=== PATIENT | female | born 1950 | race African-American/Black ===

== ENCOUNTER 2017-10-03 10:59 | Emergency (ER) | payer OTHER ==
[~2017-10-03] VITALS: Ht 167.6 cm; Wt 160.0 kg
[~2017-10-03 10:59] MED LIST: ACET1TAB12 PO; AMIT100T2 PO; AMLO10TA80 PO; ATEN100T PO; BENZ2TAB7 PO; CYCL10TA7 PO; FLUP10TA2 PO; LOSA100T14 PO; LOVA40TA73 PO; MULT-1116 PO; [UNRECOGNIZED DRUG - CODE] PO
[2017-10-03] MEDS ORDERED: IBUPROFEN 600MG TABLET PO ONE (13:15)
[2017-10-03 19:47] VITALS: BP 140/67
== END 2017-10-03 20:11 | disposition home or self-care (01) ==
LOC: ER 11:15
DX: M25.562 Pain in left knee (principal); M25.561 Pain in right knee; M17.0 Bilateral primary osteoarthritis of knee; G89.29 Other chronic pain; F41.9 Anxiety disorder, unspecified; E86.0 Dehydration; M19.90 Unspecified osteoarthritis, unspecified site; E78.00 Pure hypercholesterolemia, unspecified; I10 Essential (primary) hypertension; E66.01 Morbid (severe) obesity due to excess calories; M51.36 Other intervertebral disc degeneration, lumbar region; Z68.43 Body mass index [BMI] 50.0-59.9, adult; Z99.3 Dependence on wheelchair; Z88.0 Allergy status to penicillin; Z88.6 Allergy status to analgesic agent; W01.0XXA Fall on same level from slipping, tripping and stumbling without subsequent striking against object, initial encounter; Y93.89 Activity, other specified; Y92.013 Bedroom of single-family (private) house as the place of occurrence of the external cause; M85.80 Other specified disorders of bone density and structure, unspecified site
CPT/HCPCS: 71045; 72100; 73560; 73590; 99284; Z7610

== ENCOUNTER 2018-01-04 09:39 | Emergency (ER) | payer OTHER ==
[~2018-01-04] VITALS: Ht 162.6 cm; Wt 158.0 kg
[2018-01-04] MEDS ORDERED: CYCLOBENZAPRINE 10MG TABLET PO ONE (11:30)
[2018-01-04] MEDS ORDERED: IBUPROFEN 600MG TABLET PO ONE (11:30)
[2018-01-04 16:00] VITALS: BP 147/67
== END 2018-01-04 16:05 | disposition home or self-care (01) ==
LOC: ER 09:55
DX: S82.832A Other fracture of upper and lower end of left fibula, initial encounter for closed fracture (principal); M19.90 Unspecified osteoarthritis, unspecified site; F41.9 Anxiety disorder, unspecified; K21.9 Gastro-esophageal reflux disease without esophagitis; I10 Essential (primary) hypertension; E78.00 Pure hypercholesterolemia, unspecified; Z88.0 Allergy status to penicillin; Z88.6 Allergy status to analgesic agent; Z79.899 Other long term (current) drug therapy; X58.XXXA Exposure to other specified factors, initial encounter; Y93.89 Activity, other specified; Y92.89 Other specified places as the place of occurrence of the external cause; Y99.8 Other external cause status
CPT/HCPCS: 29515; 73610; 99284; Z7610

== ENCOUNTER 2018-12-28 22:15 | Emergency (ER) | payer OTHER ==
[~2018-12-28] VITALS: Ht 162.6 cm; Wt 167.0 kg
[~2018-12-28 22:15] MED LIST changes: -LOSA100T14 PO; +LOSA100T32 PO
[2018-12-28] MEDS ORDERED: METHYLPREDNISOLONE SOD SUCC 125 MG/2 ML VIAL IV STA (22:48)
[2018-12-28] MEDS ORDERED: ALBUTEROL (0.083%) 2.5MG/3ML NEB HHN STA (22:48)
[2018-12-28] MEDS ORDERED: IPRATROPIUM BROMIDE (0.02%) 0.5MG/2.5ML NEB HHN STA (22:48)
[2018-12-28] MEDS ORDERED: ASPIRIN 81MG TABLET PO ONE (23:00)
[2018-12-28 23:22] LABS: BASOPHILS % 0.3 % (0.0-2.0); EOSINOPHILS % 2.6 % (0.0-5.0); HEMATOCRIT. 31.5 % (36.0-48.0); HEMOGLOBIN. 10.7 g/dL (12.0-16.0); LYMPHOCYTES % 12.3 % (20.0-50.0); MEAN CORPUSCULAR HEMOGLOBIN 28.2 pg (28.0-32.0); MEAN CORPUSCULAR VOLUME 82.9 fL (81.0-99.0); MONOCYTES % 6.3 % (2.0-8.0); NEUTROPHILS % 78.5 % (40.0-76.0); PLATELET 342 x1000/uL (130-400); RED BLOOD CELL COUNT 3.79 mill/uL (4.2-5.4); RED CELL DISTRIBUTION WIDTH 14.7 % (11.6-14.6)
[2018-12-28 23:28] LABS: CHLORIDE 93 mEq/L (98-107)
[2018-12-29 04:13] VITALS: BP 121/67
== END 2018-12-29 04:30 | disposition home or self-care (01) ==
LOC: ER 22:37
DX: R53.1 Weakness (principal); R06.2 Wheezing; R42 Dizziness and giddiness; I12.9 Hypertensive chronic kidney disease with stage 1 through stage 4 chronic kidney disease, or unspecified chronic kidney disease; N18.9 Chronic kidney disease, unspecified
CPT/HCPCS: 36415; 71045; 80053; 83690; 83880; 84484; 85025; 94640; 96374; 99284; J2930; J7611; Z7610

== ENCOUNTER 2019-05-20 22:02 | Emergency (ER) | payer OTHER ==
[~2019-05-20] VITALS: Ht 167.6 cm; Wt 138.0 kg
[2019-05-20] MEDS ORDERED: KETOROLAC 30MG/ML VIAL IV STA (22:51)
[2019-05-20 23:25] LABS: BASOPHILS % 1.3 % (0.0-2.0); EOSINOPHILS % 4.3 % (0.0-5.0); LYMPHOCYTES % 42.1 % (20.0-50.0); MEAN CORPUSCULAR HEMOGLOBIN 27.7 pg (28.0-32.0); MEAN CORPUSCULAR VOLUME 82.9 fL (81.0-99.0); MONOCYTES % 7.4 % (2.0-8.0); NEUTROPHILS % 44.9 % (40.0-76.0); PLATELET 390 x1000/uL (130-400); RED BLOOD CELL COUNT 3.98 mill/uL (4.2-5.4); RED CELL DISTRIBUTION WIDTH 16.3 % (11.6-14.6)
[2019-05-20 23:37] LABS: CHLORIDE 105 mEq/L (98-107)
[2019-05-21 04:12] VITALS: BP 124/63
== END 2019-05-21 04:49 | disposition home or self-care (01) ==
LOC: ER 22:02
DX: J06.9 Acute upper respiratory infection, unspecified (principal); I10 Essential (primary) hypertension; F20.9 Schizophrenia, unspecified; Z88.0 Allergy status to penicillin; Z88.6 Allergy status to analgesic agent; Z88.5 Allergy status to narcotic agent; Z79.899 Other long term (current) drug therapy
CPT/HCPCS: 36415; 71045; 80053; 83880; 84484; 85025; 87804; 93005; 96374; 99284; J1885; Z7610

== ENCOUNTER 2022-02-14 10:15 | Emergency (ER) | payer MEDICARE, OTHER ==
[~2022-02-14] VITALS: Ht 162.6 cm; Wt 204.0 kg
[~2022-02-14 10:15] MED LIST changes: +CYCL10TA21 PO; -CYCL10TA7 PO; +FLUP10TA13 PO; -FLUP10TA2 PO
[2022-02-14 10:17] VITALS: BP 120/58
[2022-02-14] MEDS ORDERED: IBUP-2029 MT (13:37)
== END 2022-02-14 16:05 | disposition home or self-care (01) ==
LOC: ER 10:15
DX: M19.09 Primary osteoarthritis, other specified site (principal); R60.0 Localized edema; E78.00 Pure hypercholesterolemia, unspecified; I10 Essential (primary) hypertension; F20.9 Schizophrenia, unspecified; Z79.899 Other long term (current) drug therapy
CPT/HCPCS: 73030; 93971; 99284

== ENCOUNTER 2022-12-09 16:53 | Emergency (ER) | payer MEDICARE, OTHER ==
[~2022-12-09] VITALS: Ht 167.6 cm; Wt 170.0 kg
[~2022-12-09 16:53] MED LIST changes: +BENZ2TAB65 PO; -BENZ2TAB7 PO; +IBUP-2029 MT; -LOSA100T32 PO; +LOSA100T33 PO
[2022-12-09 17:02] VITALS: O2SAT 97
[2022-12-09 19:06] LABS: BASOPHILS % 0.7 % (0.0-2.0); EOSINOPHILS % 2.4 % (0.0-5.0); HEMATOCRIT. 33.2 % (36.0-48.0); HEMOGLOBIN. 10.8 g/dL (12.0-16.0); LYMPHOCYTES % 30.3 % (20.0-50.0); MEAN CORPUSCULAR HEMOGLOBIN 28.2 pg (28.0-32.0); MEAN CORPUSCULAR VOLUME 86.4 fL (81.0-99.0); MEAN PLATELET VOLUME 6.5 fl (7.4-10.4); MONOCYTES % 6.7 % (2.0-8.0); NEUTROPHILS % 59.9 % (40.0-76.0); PLATELET 259 x1000/uL (130-400); RED BLOOD CELL COUNT 3.85 mill/uL (4.2-5.4); RED CELL DISTRIBUTION WIDTH 14.5 % (11.6-14.6)
[2022-12-09 19:13] LABS: CHLORIDE 101 mEq/L (98-107); INR 1.1; PROTHROMBIN TIME 11.4 sec (9.6-11.0)
[2022-12-09 19:23] LABS: ETHANOL BLOOD < 10 mg/dL (-10)
[2022-12-09 20:03] LABS: CLARITY URINE CLEAR (CLEAR); COLOR URINE YELLOW (YELLOW); KETONES URINE NEGATIVE (NEGATIVE); LEUKOCYTE ESTERASE URINE NEGATIVE (NEGATIVE); NITRITE URINE NEGATIVE (NEGATIVE); OCCULT BLOOD URINE TRACE (NEGATIVE); PH URINE 6.5 (4.5-8.0); PROTEIN URINE NEGATIVE (NEGATIVE); SPECIFIC GRAVITY URINE 1.009 (1.005-1.030); UROBILINOGEN URINE 0.2 E.U./dL (0.2-1.0)
[2022-12-09 20:18] LABS: *AMPHETAMINES SCREEN URINE NEGATIVE (NEGATIVE); *BARBITURATES SCREEN URINE NEGATIVE (NEGATIVE); *BENZODIAZEPINES SCREEN URINE NEGATIVE (NEGATIVE); *COCAINE SCREEN URINE NEGATIVE (NEGATIVE); CANNABINOID URINE SCREEN NEGATIVE (NEGATIVE); METHADONE URINE SCREEN NEGATIVE (NEGATIVE); OPIATES URINE SCREEN NEGATIVE (NEGATIVE); PHENCYCLIDINE URINE SCREEN NEGATIVE (NEGATIVE)
[2022-12-09] MEDS ORDERED: NAPROXEN 250MG TABLET PO ONE (21:00)
[2022-12-09] MEDS ORDERED: GABAPENTIN 100MG CAPSULE PO ONE (21:00)
[2022-12-09] MEDS ORDERED: GABA-529 MT (21:10)
[2022-12-10 13:00] VITALS: BP 135/66; PULSE 103; RESP 20; TEMP 98.1
== END 2022-12-10 13:42 | disposition home or self-care (01) ==
LOC: ER 16:53
DX: M25.551 Pain in right hip (principal); E66.01 Morbid (severe) obesity due to excess calories; I11.0 Hypertensive heart disease with heart failure; I50.9 Heart failure, unspecified; E78.00 Pure hypercholesterolemia, unspecified; I10 Essential (primary) hypertension; Z68.44 Body mass index [BMI] 60.0-69.9, adult; Z00.00 Encounter for general adult medical examination without abnormal findings; Z88.0 Allergy status to penicillin; Z88.6 Allergy status to analgesic agent; Z88.5 Allergy status to narcotic agent; Z79.899 Other long term (current) drug therapy; Z86.59 Personal history of other mental and behavioral disorders
CPT/HCPCS: 36415; 71045; 73502; 76700; 80053; 80305; 80320; 81003; 83880; 84484; 85025; 99285; G0480

== ENCOUNTER 2022-12-16 16:35 | Inpatient (IN) | payer MEDICARE, OTHER ==
[~2022-12-16] VITALS: Ht 162.6 cm; Wt 158.8 kg
[~2022-12-16 16:35] MED LIST changes: +GABA-529 MT
[2022-12-16 18:38] LABS: BASOPHILS % 0.8 % (0.0-2.0); EOSINOPHILS % 2.8 % (0.0-5.0); HEMATOCRIT. 30.2 % (36.0-48.0); HEMOGLOBIN. 9.7 g/dL (12.0-16.0); LYMPHOCYTES % 27.8 % (20.0-50.0); MEAN CORPUSCULAR HEMOGLOBIN 27.6 pg (28.0-32.0); MEAN CORPUSCULAR VOLUME 86.2 fL (81.0-99.0); MEAN PLATELET VOLUME 7.2 fl (7.4-10.4); MONOCYTES % 7.2 % (2.0-8.0); NEUTROPHILS % 61.4 % (40.0-76.0); PLATELET 288 x1000/uL (130-400); RED BLOOD CELL COUNT 3.51 mill/uL (4.2-5.4)
[2022-12-16 18:50] LABS: INR 1.1; PROTHROMBIN TIME 11.3 sec (9.6-11.0)
[2022-12-16 18:51] LABS: CHLORIDE 99 mEq/L (98-107); CLARITY URINE CLOUDY (CLEAR); COLOR URINE YELLOW (YELLOW); KETONES URINE NEGATIVE (NEGATIVE); LEUKOCYTE ESTERASE URINE 3+ (NEGATIVE); NITRITE URINE NEGATIVE (NEGATIVE); OCCULT BLOOD URINE TRACE (NEGATIVE); PH URINE 6.5 (4.5-8.0); PROTEIN URINE TRACE (NEGATIVE); SPECIFIC GRAVITY URINE 1.012 (1.005-1.030); UROBILINOGEN URINE 0.2 E.U./dL (0.2-1.0)
[2022-12-16] MEDS ORDERED: CEFTRIAXONE 1GM PREMIX 50 ML IV ONE (21:00)
[2022-12-16] MEDS ORDERED: SODIUM CHLORIDE 0.9% 1,000 ML IV ONE (21:15)
[2022-12-17] MEDS ORDERED: CEFTRIAXONE 1GM PREMIX 50 ML IV SCH (03:30)
[2022-12-17 03:41] VITALS: BP 137/73; PULSE 87; RESP 17; TEMP 96.8
[2022-12-17 08:00] VITALS: BP 129/59; PULSE 92; RESP 20; TEMP 97
[2022-12-17] MEDS ORDERED: ALPRAZOLAM 0.25 MG TABLET PO SCH ×2 (09:00)
[2022-12-17] MEDS ORDERED: CLONIDINE 0.1MG TABLET PO PRN (10:00)
[2022-12-17] MEDS ORDERED: ACETAMINOPHEN 325MG TABLET PO PRN ×2 (10:00)
[2022-12-17] MEDS ORDERED: LORAZEPAM 1MG TABLET PO PRN (10:00)
[2022-12-17] MEDS ORDERED: MAGNESIUM/ALUMINUM HYDROXIDE/SIMETHICONE 30ML UDC PO PRN (10:00)
[2022-12-17] MEDS ORDERED: ONDANSETRON HCL 4MG/2ML INJ IV PRN (10:00)
[2022-12-17] MEDS: ENOXAPARIN 40MG/0.4ML SYR SUBCUT SCH ×2 (11:00→22:08)
[2022-12-17 12:00] VITALS: BP 132/52; PULSE 90; RESP 20; TEMP 97.1
[2022-12-17] MEDS: SODIUM CHLORIDE 0.9% INJ 3ML FLUSH IVF SCH ×2 (14:00→21:28)
[2022-12-17 16:00] VITALS: BP 137/69; PULSE 93; RESP 20; TEMP 96.5
[2022-12-17 20:00] VITALS: BP 153/56; PULSE 102; RESP 20; TEMP 97.8
[2022-12-17] MEDS ORDERED: AMITRIPTYLINE 25MG TABLET PO SCH (21:00)
[2022-12-17] MEDS ORDERED: CEFTRIAXONE 1,000 MG in DEXTROSE 5% WATER 50 ML IV SCH (21:00)
[2022-12-17] MEDS ORDERED: PNEUMOCOCCAL 23-VAL P-SAC VAC 0.5 ML IM ONE (21:00)
[2022-12-17] MEDS ORDERED: ATORVASTATIN CALCIUM 40MG TABLET PO SCH (21:00)
[2022-12-18] VITALS: BP 121/43; PULSE 104; RESP 21; TEMP 98.8
[2022-12-18 04:00] VITALS: BP 117/53; PULSE 108; RESP 21; TEMP 98.9
[2022-12-18] MEDS: SODIUM CHLORIDE 0.9% INJ 3ML FLUSH IVF SCH ×2 (06:00→14:00)
[2022-12-18 06:03] LABS: CHLORIDE 99 mEq/L (98-107)
[2022-12-18 06:11] LABS: PHOSPHORUS 3.6 mg/dL (2.5-4.9)
[2022-12-18 06:25] LABS: EOSINOPHILS % 3.9 % (0.0-5.0); HEMATOCRIT. 30.9 % (36.0-48.0); MEAN CORPUSCULAR HEMOGLOBIN 28.2 pg (28.0-32.0); MEAN CORPUSCULAR VOLUME 86.9 fL (81.0-99.0); MEAN PLATELET VOLUME 6.9 fl (7.4-10.4); MONOCYTES % 8.6 % (2.0-8.0); NEUTROPHILS % 54.5 % (40.0-76.0); PLATELET 295 x1000/uL (130-400); RED BLOOD CELL COUNT 3.56 mill/uL (4.2-5.4); RED CELL DISTRIBUTION WIDTH 15.4 % (11.6-14.6)
[2022-12-18 08:00] VITALS: BP 116/58; PULSE 74; RESP 19; TEMP 98.1
[2022-12-18] MEDS ORDERED: ALPRAZOLAM 0.5 MG TABLET PO SCH (09:00)
[2022-12-18 12:00] VITALS: BP 104/57; PULSE 97; RESP 18; TEMP 100.6
[2022-12-18 15:27] VITALS: BP 116/59; PULSE 70; TEMP 98.7; O2SAT 98
[2022-12-18 16:02] VITALS: BP 116/59; PULSE 70; RESP 18; TEMP 86.6
[2022-12-18] MEDS: ENOXAPARIN 40MG/0.4ML SYR SUBCUT SCH (17:09)
== END 2022-12-18 19:16 | disposition home or self-care (01) | DRG 872 ==
LOC: ER 16:35 → MICUSO 23:29 → ENRESERV 12-17 00:35 → 6EST 12-17 03:24
PROVIDERS: ADMIT Internal Medicine; ATTEND Internal Medicine
DX: A41.9 Sepsis, unspecified organism (principal); N39.0 Urinary tract infection, site not specified; N17.9 Acute kidney failure, unspecified; Z68.44 Body mass index [BMI] 60.0-69.9, adult; E87.5 Hyperkalemia; F20.9 Schizophrenia, unspecified; I10 Essential (primary) hypertension; E78.00 Pure hypercholesterolemia, unspecified; E66.01 Morbid (severe) obesity due to excess calories; M19.90 Unspecified osteoarthritis, unspecified site; Z88.6 Allergy status to analgesic agent; Z88.0 Allergy status to penicillin; Z74.01 Bed confinement status
CPT/HCPCS: 36415; 71045; 80048; 80053; 81003; 83605; 83735; 83880; 84100; 84484; 85025; 87077; 87186; 90732; 93005; 99285; A6261; J0696; J1650; J7030; J7060; A4315

== ENCOUNTER 2023-02-19 07:31 | Emergency (ER) | payer MEDICARE, OTHER ==
[~2023-02-19] VITALS: Ht 160 cm; Wt 215.0 kg
[~2023-02-19 07:31] MED LIST changes: -ACET1TAB12 PO; -AMIT100T2 PO; +AMIT50TA4 PO; -AMLO10TA80 PO; -ATEN100T PO; +ATEN50TA PO; +BENZ0.5T3 PO; -BENZ2TAB65 PO; +DOXY100C5 PO; -GABA-529 MT; -IBUP-2029 MT; +LIP40 PO; +LISI10TA26 PO; -LOSA100T33 PO; -LOVA40TA73 PO; -MULT-1116 PO; +PROT40 PO; -[UNRECOGNIZED DRUG - CODE] PO
[2023-02-19 07:42] VITALS: O2SAT 97
[2023-02-19 08:51] LABS: BASOPHILS % 0.6 % (0.0-2.0); EOSINOPHILS % 11.8 % (0.0-5.0); HEMATOCRIT. 27.8 % (36.0-48.0); HEMOGLOBIN. 8.7 g/dL (12.0-16.0); LYMPHOCYTES % 27.3 % (20.0-50.0); MEAN CORPUSCULAR HEMOGLOBIN 26.8 pg (28.0-32.0); MEAN CORPUSCULAR HGB CONC 31.4 g/dL (31.0-37.0); MEAN CORPUSCULAR VOLUME 85.4 fL (81.0-99.0); MEAN PLATELET VOLUME 6.1 fl (7.4-10.4); MONOCYTES % 8.1 % (2.0-8.0); NEUTROPHILS % 52.2 % (40.0-76.0); PLATELET 262 x1000/uL (130-400); RED BLOOD CELL COUNT 3.26 mill/uL (4.2-5.4); RED CELL DISTRIBUTION WIDTH 16.9 % (11.6-14.6); WHITE BLOOD COUNT 6.5 x1000/uL (4.5-11.0)
[2023-02-19 09:10] LABS: CHLORIDE 90 mEq/L (98-107); INDEX HEMOLYSI 1 (1-3); INDEX ICTERIC 1 (1-4); INDEX LIPEMIC 1 (1-3); POTASSIUM 3.8 mEq/L (3.5-5.1); SODIUM 125 mEq/L (136-145)
[2023-02-19 09:21] LABS: ALANINE AMINOTRANSFERASE 12 IU/L (13-61); ALBUMIN 2.7 g/dL (3.4-5.0); ASPARTATE AMINOTRANSFERASE 12 IU/L (15-37); BILIRUBIN TOTAL 0.3 mg/dL (0.1-1.0); CALCIUM 8.1 mg/dL (8.5-10.1); CARBON DIOXIDE 28 mEq/L (21-32); CREATININE 2.2 mg/dL (0.6-1.3); GLUCOSE 99 mg/dL (70-105); NT PRO B-TYPE NATRIURETIC PEP 1015 pg/mL (5-125); PROTEIN TOTAL 6.2 g/dL (6.0-8.3); TROPONIN I HIGH SENSITIVITY 13 ng/L (<54); UREA NITROGEN BLOOD 20 mg/dL (7-21)
[2023-02-19] MEDS ORDERED: PROMETHAZINE/DEXTROMETHORPHAN 6.25-15MG/5ML BOTTLE 120ML PO PRN (12:00)
[2023-02-19] MEDS ORDERED: FUROSEMIDE 40MG/4ML VIAL IVP NR (14:30)
[2023-02-19] MEDS ORDERED: FUROSEMIDE 20MG/2ML VIAL IVP ONE (14:30)
[2023-02-19] MEDS ORDERED: CEFTRIAXONE 1GM PREMIX 50 ML IV ONE (14:30)
[2023-02-19] MEDS ORDERED: AZITHROMYCIN 500MG/250ML 250 ML IV ONE (14:30)
[2023-02-19] MEDS ORDERED: HYDRALAZINE 20MG/ML VIAL IV ONE (19:30)
[2023-02-19] MEDS ORDERED: ATENOLOL 25MG TABLET PO ONE (20:00)
[2023-02-19] MEDS ORDERED: ATENOLOL 50 MG TABLET PO NR (21:00)
[2023-02-19 23:30] VITALS: BP 119/58; PULSE 104; RESP 18; TEMP 98.3
== END 2023-02-19 23:49 | disposition short-term general hospital (02) ==
LOC: ER 07:46
DX: R06.02 Shortness of breath (principal); I10 Essential (primary) hypertension; Z88.6 Allergy status to analgesic agent; Z88.5 Allergy status to narcotic agent; Z88.0 Allergy status to penicillin; Z20.822 Contact with and (suspected) exposure to COVID-19
CPT/HCPCS: 99285; 78580; 96365; 71045; 96366; 96375; 87426; 80053; 83880; 85025; 85379; 84484; 36415; 93005; 96368; J0456; J0696; J1940; J0360; C9803; A9540

== ENCOUNTER 2023-03-21 00:45 | Emergency (ER) | payer MEDICARE, OTHER ==
[~2023-03-21] VITALS: Ht 177.8 cm; Wt 200.0 kg
[2023-03-21 01:00] VITALS: O2SAT 95
[2023-03-21] MEDS ORDERED: ACETAMINOPHEN 325MG TABLET PO ONE (01:00)
[2023-03-21] MEDS ORDERED: POLY119P2 MT ×2 (02:52)
[2023-03-21] MEDS ORDERED: ACETAMINOPHEN 325MG TABLET PO NR (03:00)
[2023-03-21] MEDS ORDERED: ACET-2708 MT (04:41)
[2023-03-21 10:42] VITALS: BP 132/60; PULSE 101; RESP 22; TEMP 98.2
== END 2023-03-21 10:40 | disposition home or self-care (01) ==
LOC: ER 01:14
DX: M17.12 Unilateral primary osteoarthritis, left knee (principal); E66.01 Morbid (severe) obesity due to excess calories; I11.0 Hypertensive heart disease with heart failure; I50.9 Heart failure, unspecified; Z68.45 Body mass index [BMI] 70 or greater, adult; Z88.6 Allergy status to analgesic agent; Z88.5 Allergy status to narcotic agent; Z88.0 Allergy status to penicillin; Z79.899 Other long term (current) drug therapy; Z00.00 Encounter for general adult medical examination without abnormal findings
CPT/HCPCS: 73562; 73610; 93971; 99285

== ENCOUNTER 2023-04-23 12:26 | Emergency (ER) | payer MEDICARE, OTHER ==
[~2023-04-23] VITALS: Ht 162.6 cm; Wt 181.0 kg
[~2023-04-23 12:26] MED LIST changes: +ACET-2708 MT
[2023-04-23 12:28] VITALS: BP 134/56; PULSE 100; RESP 16; TEMP 98; O2SAT 97
[2023-04-23 13:54] LABS: HEMATOCRIT. 31.9 % (36.0-48.0); HEMOGLOBIN. 10.1 g/dL (12.0-16.0); MEAN CORPUSCULAR HEMOGLOBIN 27.6 pg (28.0-32.0); MEAN CORPUSCULAR HGB CONC 31.6 g/dL (31.0-37.0); MEAN CORPUSCULAR VOLUME 87.1 fL (81.0-99.0); MEAN PLATELET VOLUME 6.3 fl (7.4-10.4); PLATELET 259 x1000/uL (130-400); RED BLOOD CELL COUNT 3.66 mill/uL (4.2-5.4); RED CELL DISTRIBUTION WIDTH 16.6 % (11.6-14.6); WHITE BLOOD COUNT 4.7 x1000/uL (4.5-11.0)
[2023-04-23 14:02] LABS: INR 1.2; PROTHROMBIN TIME 12.8 sec (9.6-11.0)
[2023-04-23 14:04] LABS: CHLORIDE 92 mEq/L (98-107); INDEX HEMOLYSI 1 (1-3); INDEX ICTERIC 1 (1-4); INDEX LIPEMIC 1 (1-3); POTASSIUM 3.8 mEq/L (3.5-5.1); SODIUM 131 mEq/L (136-145)
[2023-04-23 14:12] LABS: DIFFERENTIAL COMMENT 1
[2023-04-23 14:15] LABS: ALANINE AMINOTRANSFERASE 16 IU/L (13-61); ALBUMIN 2.5 g/dL (3.4-5.0); ASPARTATE AMINOTRANSFERASE 18 IU/L (15-37); BILIRUBIN TOTAL 0.5 mg/dL (0.1-1.0); CALCIUM 8.3 mg/dL (8.5-10.1); CARBON DIOXIDE 36 mEq/L (21-32); CREATININE 0.9 mg/dL (0.6-1.3); GLUCOSE 87 mg/dL (70-105); NT PRO B-TYPE NATRIURETIC PEP 540 pg/mL (5-125); PROTEIN TOTAL 6.5 g/dL (6.0-8.3); UREA NITROGEN BLOOD 12 mg/dL (7-21)
[2023-04-23 14:27] LABS: PLATELET ESTIMATE NORMAL
[2023-04-23] MEDS ORDERED: NITR-87 MT (21:05)
== END 2023-04-23 22:47 | disposition left against medical advice (07) ==
LOC: ER 13:21
DX: R30.0 Dysuria (principal); I11.0 Hypertensive heart disease with heart failure; I50.9 Heart failure, unspecified; Z88.6 Allergy status to analgesic agent; Z88.0 Allergy status to penicillin; Z79.899 Other long term (current) drug therapy; Z98.890 Other specified postprocedural states
CPT/HCPCS: 36415; 71045; 80053; 83880; 85025; 93005; 99284

== ENCOUNTER 2023-11-24 00:52 | Emergency (ER) | payer MEDICARE, OTHER ==
[~2023-11-24] VITALS: Ht 167.6 cm; Wt 147.0 kg
[~2023-11-24 00:52] MED LIST changes: +NITR-87 MT
[2023-11-24 00:55] VITALS: O2SAT 98
[2023-11-24 01:58] LABS: BASOPHILS % 0.7 % (0.0-2.0); EOSINOPHILS % 3.6 % (0.0-5.0); HEMATOCRIT. 30.8 % (36.0-48.0); LYMPHOCYTES % 43.8 % (20.0-50.0); MEAN CORPUSCULAR HEMOGLOBIN 27.9 pg (28.0-32.0); MEAN CORPUSCULAR HGB CONC 32.3 g/dL (31.0-37.0); MEAN CORPUSCULAR VOLUME 86.5 fL (81.0-99.0); MEAN PLATELET VOLUME 6.5 fl (7.4-10.4); MONOCYTES % 6.3 % (2.0-8.0); NEUTROPHILS % 45.6 % (40.0-76.0); PLATELET 256 x1000/uL (130-400); RED BLOOD CELL COUNT 3.56 mill/uL (4.2-5.4); RED CELL DISTRIBUTION WIDTH 14.4 % (11.6-14.6)
[2023-11-24 02:10] LABS: CHLORIDE 95 mEq/L (98-107); POTASSIUM 4.1 mEq/L (3.5-5.1); SODIUM 133 mEq/L (136-145)
[2023-11-24 02:11] LABS: CARBON DIOXIDE 38 mEq/L (21-32)
[2023-11-24 02:12] LABS: CALCIUM 8.8 mg/dL (8.7-10.4)
[2023-11-24 02:17] LABS: GLUCOSE 95 mg/dL (70-105); UREA NITROGEN BLOOD 19 mg/dL (9-23)
[2023-11-24 02:20] LABS: ETHANOL BLOOD < 10 mg/dL (<10); TROPONIN I HIGH SENSITIVITY < 4 ng/L (3.0-34)
[2023-11-24] MEDS: ASPIRIN 81MG TABLET PO NR (02:52)
[2023-11-24] MEDS: ACETAMINOPHEN 1000MG/100ML 100 ML IV ONE (03:42)
[2023-11-24 04:56] VITALS: BP 152/72; PULSE 78; RESP 17; TEMP 98.4
== END 2023-11-24 05:13 | disposition short-term general hospital (02) ==
LOC: ER 00:52
DX: R07.89 Other chest pain (principal); I11.0 Hypertensive heart disease with heart failure; I50.9 Heart failure, unspecified; Z00.00 Encounter for general adult medical examination without abnormal findings; Z88.5 Allergy status to narcotic agent; Z88.6 Allergy status to analgesic agent; Z88.0 Allergy status to penicillin; Z98.890 Other specified postprocedural states; Z79.899 Other long term (current) drug therapy; Z68.43 Body mass index [BMI] 50.0-59.9, adult
CPT/HCPCS: 36415; 71045; 80048; 80320; 83880; 84484; 85025; 93005; 96365; 99285; G0480; J0131

== ENCOUNTER 2024-11-08 12:54 | Inpatient (IN) | payer MEDICARE, OTHER ==
[~2024-11-08] VITALS: Ht 152.4 cm; Wt 175.7 kg
[2024-11-08] VITALS (8 sets, daily range): BP systolic 116–144; BP diastolic 46–100; PULSE 80–101; RESP 17–27; TEMP 36.6–36.9; O2SAT 100
[2024-11-08] MEDS: SODIUM CHLORIDE 0.9% 1,000 ML IV ONE (13:41)
[2024-11-08 13:53] LABS: BASOPHILS % 0.6 % (0.0-2.0); EOSINOPHILS % 2.5 % (0.0-5.0); HEMATOCRIT. 31.2 % (36.0-48.0); HEMOGLOBIN. 9.7 g/dL (12.0-16.0); LYMPHOCYTES % 35.2 % (20.0-50.0); MEAN CORPUSCULAR HEMOGLOBIN 26.9 pg (28.0-32.0); MEAN CORPUSCULAR VOLUME 86.7 fL (81.0-99.0); MEAN PLATELET VOLUME 7.1 fl (7.4-10.4); MONOCYTES % 9.3 % (2.0-8.0); NEUTROPHILS % 52.4 % (40.0-76.0); PLATELET 231 x1000/uL (130-400); RED CELL DISTRIBUTION WIDTH 14.5 % (11.6-14.6); WHITE BLOOD COUNT 5.4 x1000/uL (4.5-11.0)
[2024-11-08 13:59] LABS: CHLORIDE 94 mEq/L (98-107); POTASSIUM 5.1 mEq/L (3.5-5.1); SODIUM 139 mEq/L (136-145)
[2024-11-08 14:00] LABS: CALCIUM 8.8 mg/dL (8.7-10.4)
[2024-11-08 14:05] LABS: CREATININE 1.2 mg/dL (0.6-1.0); ETHANOL BLOOD < 10 mg/dL (<10); GLUCOSE 98 mg/dL (70-105); UREA NITROGEN BLOOD 16 mg/dL (9-23)
[2024-11-08 14:07] LABS: CREATINE KINASE 40 IU/L (34-145)
[2024-11-08 14:16] LABS: CLARITY URINE CLOUDY (CLEAR); COLOR URINE YELLOW (YELLOW); GLUCOSE URINE TRACE (NEGATIVE); KETONES URINE NEGATIVE (NEGATIVE); LEUKOCYTE ESTERASE URINE 3+ (NEGATIVE); NITRITE URINE NEGATIVE (NEGATIVE); OCCULT BLOOD URINE 2+ (NEGATIVE); PH URINE 5.5 (4.5-8.0); PROTEIN URINE NEGATIVE (NEGATIVE); SPECIFIC GRAVITY URINE 1.009 (1.005-1.030); UROBILINOGEN URINE 0.2 E.U./dL (0.2-1.0)
[2024-11-08 14:32] LABS: *AMPHETAMINES SCREEN URINE NEGATIVE (NEGATIVE)
[2024-11-08 14:33] LABS: *BARBITURATES SCREEN URINE NEGATIVE (NEGATIVE); *BENZODIAZEPINES SCREEN URINE NEGATIVE (NEGATIVE); *COCAINE SCREEN URINE NEGATIVE (NEGATIVE)
[2024-11-08 14:33] LABS: CARBON DIOXIDE > 40 mEq/L (21-32); TROPONIN I HIGH SENSITIVITY < 4 ng/L (3.0-34)
[2024-11-08 14:34] LABS: CANNABINOID URINE SCREEN NEGATIVE (NEGATIVE); ECSTASY MDMA SCREEN URINE NEGATIVE (NEGATIVE); METHADONE URINE SCREEN NEGATIVE (NEGATIVE); OPIATES URINE SCREEN NEGATIVE (NEGATIVE); PHENCYCLIDINE URINE SCREEN NEGATIVE (NEGATIVE)
[2024-11-08 14:37] LABS: SQUAMOUS EPITHELIAL CELL URINE NONE SEEN /lpf (RARE/1+)
[2024-11-08 14:38] LABS: BACTERIA URINE 4+; WBC URINE TNTC /hpf (0-2)
[2024-11-08 15:12] LABS: INR 1.4; PROTHROMBIN TIME 14.6 sec (9.6-11.0)
[2024-11-08] MEDS: CEFTRIAXONE 1GM/50ML 50 ML IV ONE (15:19)
[2024-11-08 15:51] LABS: BG BASE EXCESS 13.9 mmol/L (-2.0-3.0); BG CARBOXYHEMOGLOBIN 0.7 % (0.5-1.5); BG DEOXYHEMOGLOBIN 2.2 % (0.0-5.0); BG FRACTION INSPIRED OXYGEN 32; BG HCO3 ACT 43.9 mmol/L (21.0-28.0); BG METHEMOGLOBIN 0.1 % (0.5-1.5); BG OXYGEN SATURATION 97.8 % (94.0-98.0); BG PCO2 95.4 mmHg (32.0-45.0); BG PH 7.281 (7.350-7.450); BG PO2 104.3 mmHg (83.0-108.0); BG SAMPLE SITE RIGHT RADIAL; BG TOTAL HEMOGLOBIN 10.7 g/dL (12.0-16.0); BG VENT MODE NASAL CANNULA
[2024-11-08] MEDS ORDERED: HYDROCODONE/ACETAMINOPHEN 5/325MG TABLET PO PRN (18:15)
[2024-11-08] MEDS ORDERED: MAGNESIUM/ALUMINUM HYDROXIDE/SIMETHICONE 30ML UDC PO PRN (18:15)
[2024-11-08] MEDS ORDERED: HYDRALAZINE 20MG/ML VIAL IV PRN (18:15)
[2024-11-08] MEDS ORDERED: GUAIFENESIN 200MG/10ML SUGAR FREE UDC PO PRN (18:15)
[2024-11-08] MEDS ORDERED: ACETAMINOPHEN 325MG TABLET PO PRN (18:15)
[2024-11-08] MEDS ORDERED: CLONIDINE 0.1MG TABLET PO PRN (18:15)
[2024-11-08] MEDS ORDERED: LEVOFLOXACIN 500MG PREMIX 100 ML IV SCH (18:15)
[2024-11-08] MEDS ORDERED: ONDANSETRON HCL 4MG/2ML INJ IV PRN (18:15)
[2024-11-08] MEDS: IPRATROPIUM/ALBUTEROL 0.5-3(2.5)MG/3ML NEB NEB SCH (20:27)
[2024-11-08] MEDS ORDERED: BENZTROPINE MESYLATE 0.5MG TABLET PO SCH (21:00)
[2024-11-08] MEDS: METHYLPREDNISOLONE SOD SUCC 40MG/ML (ACT-O-VIAL) IV SCH (21:59)
[2024-11-08] MEDS: FLUPHENAZINE HCL 10 MG TABLET PO SCH (21:59)
[2024-11-08] MEDS: BENZTROPINE MESYLATE 1MG TABLET PO SCH (21:59)
[2024-11-08] MEDS: ATORVASTATIN CALCIUM 40MG TABLET PO SCH (21:59)
[2024-11-08] MEDS: ENOXAPARIN 40MG/0.4ML SYR SUBCUT SCH (22:00)
[2024-11-08 22:10] LABS: BG CARBOXYHEMOGLOBIN 0.9 % (0.5-1.5); BG DEOXYHEMOGLOBIN 3.7 % (0.0-5.0); BG FRACTION INSPIRED OXYGEN 30; BG HCO3 ACT 41.9 mmol/L (21.0-28.0); BG METHEMOGLOBIN 0.1 % (0.5-1.5); BG OXYGEN SATURATION 96.3 % (94.0-98.0); BG OXYHEMOGLOBIN 95.3 % (94.0-98.0); BG PCO2 65.9 mmHg (32.0-45.0); BG PH 7.421 (7.350-7.450); BG PO2 75.9 mmHg (83.0-108.0); BG SAMPLE SITE LEFT RADIAL; BG TOTAL HEMOGLOBIN 10.6 g/dL (12.0-16.0); BG VENT MODE MASK - BIPAP
[2024-11-09] VITALS (17 sets, daily range): BP systolic 65–156; BP diastolic 25–143; PULSE 85–100; RESP 14–32; TEMP 36.7–36.9; O2SAT 98–100
[2024-11-09] MEDS: LEVOFLOXACIN 750MG PREMIX 150 ML IV SCH (00:02)
[2024-11-09 00:13] LABS: TROPONIN I HIGH SENSITIVITY < 4 ng/L (3.0-34)
[2024-11-09 05:23] LABS: BG BASE EXCESS 12.4 mmol/L (-2.0-3.0); BG CARBOXYHEMOGLOBIN 0.8 % (0.5-1.5); BG DEOXYHEMOGLOBIN 4.4 % (0.0-5.0); BG FRACTION INSPIRED OXYGEN 30; BG HCO3 ACT 38.9 mmol/L (21.0-28.0); BG METHEMOGLOBIN 0.2 % (0.5-1.5); BG OXYGEN SATURATION 95.6 % (94.0-98.0); BG OXYHEMOGLOBIN 94.6 % (94.0-98.0); BG PCO2 60.9 mmHg (32.0-45.0); BG PH 7.423 (7.350-7.450); BG PO2 73.2 mmHg (83.0-108.0)
[2024-11-09 06:32] LABS: BASOPHILS % 0.2 % (0.0-2.0); HEMATOCRIT. 32.2 % (36.0-48.0); HEMOGLOBIN. 10.1 g/dL (12.0-16.0); LYMPHOCYTES % 18.6 % (20.0-50.0); MEAN CORPUSCULAR HEMOGLOBIN 26.7 pg (28.0-32.0); MEAN CORPUSCULAR HGB CONC 31.3 g/dL (31.0-37.0); MEAN CORPUSCULAR VOLUME 85.5 fL (81.0-99.0); MEAN PLATELET VOLUME 7.4 fl (7.4-10.4); MONOCYTES % 1.9 % (2.0-8.0); NEUTROPHILS % 79.3 % (40.0-76.0); PLATELET 243 x1000/uL (130-400); RED BLOOD CELL COUNT 3.77 mill/uL (4.2-5.4); RED CELL DISTRIBUTION WIDTH 14.6 % (11.6-14.6); WHITE BLOOD COUNT 5.6 x1000/uL (4.5-11.0)
[2024-11-09 06:46] LABS: POTASSIUM 4.2 mEq/L (3.5-5.1)
[2024-11-09 06:47] LABS: CALCIUM 9.1 mg/dL (8.7-10.4)
[2024-11-09 06:52] LABS: CREATININE 1.1 mg/dL (0.6-1.0)
[2024-11-09 07:13] LABS: TROPONIN I HIGH SENSITIVITY < 4 ng/L (3.0-34)
[2024-11-09] MEDS: PANTOPRAZOLE SODIUM 40 MG/VIAL IV SCH (10:30)
[2024-11-09] MEDS ORDERED: DOCU-422 PO (19:49)
[2024-11-09] MEDS ORDERED: MELA10CA PO (19:52)
[2024-11-09] MEDS ORDERED: *PATIENT'S OWN MEDICATION STORAGE XX SCH (20:15)
[2024-11-09] MEDS: CEFTRIAXONE 1GM/50ML 50ML IV SCH (21:31)
[2024-11-10] VITALS (16 sets, daily range): BP systolic 103–131; BP diastolic 46–95; PULSE 90–100; RESP 16–23; TEMP 36.7–36.9; O2SAT 96–100
[2024-11-10 06:35] LABS: BASOPHILS % 0.5 % (0.0-2.0); EOSINOPHILS % 0.3 % (0.0-5.0); HEMATOCRIT. 29.7 % (36.0-48.0); HEMOGLOBIN. 9.4 g/dL (12.0-16.0); LYMPHOCYTES % 31.9 % (20.0-50.0); MEAN CORPUSCULAR HEMOGLOBIN 26.8 pg (28.0-32.0); MEAN CORPUSCULAR HGB CONC 31.7 g/dL (31.0-37.0); MEAN CORPUSCULAR VOLUME 84.5 fL (81.0-99.0); MEAN PLATELET VOLUME 7.8 fl (7.4-10.4); MONOCYTES % 9.1 % (2.0-8.0); NEUTROPHILS % 58.2 % (40.0-76.0); PLATELET 243 x1000/uL (130-400); RED BLOOD CELL COUNT 3.51 mill/uL (4.2-5.4); RED CELL DISTRIBUTION WIDTH 14.7 % (11.6-14.6); WHITE BLOOD COUNT 6.4 x1000/uL (4.5-11.0)
[2024-11-10 06:40] LABS: CALCIUM 8.6 mg/dL (8.7-10.4)
[2024-11-10 06:45] LABS: CREATININE 1.4 mg/dL (0.6-1.0)
[2024-11-10 10:57] LABS: BG BASE EXCESS 10.8 mmol/L (-2.0-3.0); BG CARBOXYHEMOGLOBIN 0.6 % (0.5-1.5); BG DEOXYHEMOGLOBIN 1.6 % (0.0-5.0); BG FRACTION INSPIRED OXYGEN 28; BG METHEMOGLOBIN 0.1 % (0.5-1.5); BG OXYGEN SATURATION 98.4 % (94.0-98.0); BG OXYHEMOGLOBIN 97.7 % (94.0-98.0); BG PCO2 58.4 mmHg (32.0-45.0); BG PO2 112.4 mmHg (83.0-108.0); BG SAMPLE SITE LEFT RADIAL; BG TOTAL HEMOGLOBIN 10.8 g/dL (12.0-16.0); BG VENT MODE NASAL CANNULA
[2024-11-10] MEDS ORDERED: NALOXONE HCL 0.4MG/ML VIAL IV PRN (20:45)
== END 2024-11-10 21:45 | disposition short-term general hospital (02) | DRG 189 ==
LOC: ER 12:54 → 5EST 16:21 → EDBEDREQ 16:22 → EDBEDREQTM 16:22 → EDBEDREQSVC 16:22 → ENRESERV 16:29 → 5EST 11-10 20:27
PROVIDERS: ADMIT Internal Medicine; ATTEND Internal Medicine
PROC: 5A09357 Assistance with Respiratory Ventilation, Less than 24 Consecutive Hours, Continuous Positive Airway Pressure (ICD-10-PCS; principal; 2024-11-08)
PROC: 5A09357 Assistance with Respiratory Ventilation, Less than 24 Consecutive Hours, Continuous Positive Airway Pressure (ICD-10-PCS; 2024-11-09)
PROC: 5A09357 Assistance with Respiratory Ventilation, Less than 24 Consecutive Hours, Continuous Positive Airway Pressure (ICD-10-PCS; 2024-11-10)
DX: J96.22 Acute and chronic respiratory failure with hypercapnia (principal); J44.1 Chronic obstructive pulmonary disease with (acute) exacerbation; E66.2 Morbid (severe) obesity with alveolar hypoventilation; I13.0 Hypertensive heart and chronic kidney disease with heart failure and stage 1 through stage 4 chronic kidney disease, or unspecified chronic kidney disease; N39.0 Urinary tract infection, site not specified; Z68.44 Body mass index [BMI] 60.0-69.9, adult; E87.29 Other acidosis; N17.9 Acute kidney failure, unspecified; I50.9 Heart failure, unspecified; Z99.81 Dependence on supplemental oxygen; F41.9 Anxiety disorder, unspecified; D64.9 Anemia, unspecified; N18.9 Chronic kidney disease, unspecified; Z87.891 Personal history of nicotine dependence; Z88.5 Allergy status to narcotic agent; Z88.6 Allergy status to analgesic agent
CPT/HCPCS: 36415; 36600; 71045; 80048; 80305; 80320; 81003; 82375; 82550; 82805; 84484; 85025; 87077; 87186; 93005; 93970; 94070; 94640; 94660; 94664; 98960; 99291; A4606; J0696; J1650; J1956; J2470; J2919; J7030; G0480